=== PATIENT | male | born 1965 | race African-American/Black ===

== ENCOUNTER 2018-04-05 09:15 | Inpatient (IN) | payer OTHER ==
[2018-04-05 10:09] VITALS: BMI 33.1
--- NOTE | 2018-04-05 10:31 | HP ---
COWS - Scale Resting Pulse: 0= [place] 80 or Below Sweatin= Chills/Flushing Restless Observation: 3= Extraneous Movement Pupil Size: 1= Pupils >than Normal Bone or Joint Aches: 2= Severe Diffuse Aches Runny Nose/ Eye Tearin= Runny Nose/Eyes GI Upset > 30mins: 2= Nausea/Diarrhea Tremor Observation: 2= Slight Tremor Visible Yawning Observation: 2= >3x During Session Anxiety or Irritability: 2=Irritable/Anxious Goose Flesh Skin: 0=Smooth Skin COWS Score: 17 CIWA Score - CIWA Score Nausea/Vomitin Muscle Tremors: 2 Anxiety: 2 Agitation: 2 Paroxysmal Sweats: 1-Minimal Palms Moist Orientation: 0-Oriented Tacttile Disturbances: 1-Very Mild Itch/Numbness Auditory Disturbances: 1-Very Mild Visual Disturbances: 1-Very Mild Sensitivity Headache: 2-Mild CIWA-Ar Total Score: 14 Admission ROS BHS - HPI Chief Complaint: i need help to stop using heroin,alcohol,also on probation Allergies/Adverse Reactions: Allergies Allergy/AdvReac Type Severity Reaction Status Date / Time No Known Allergies Allergy Verified 04/05/18 10:13 History of Present Illness: this 52 years old male with heroin,alcohol dependence,xanax dependence seeking detox,withdrawal symptom,on probation last detox 2014 [facility] hypertension,hypercholesterolemia,hepatitis c,type 2 dm nicotine dependence anxiety,depression longest period of sobriety 2 and half year Exam Limitations: No Limitations - Ebola screening Have you traveled outside of the country in the last 21 days: No Have you had contact with anyone from an Ebola affected area: No Have you been sick,other than usual withdrawal symptoms: No Do you have a fever: No - Review of Systems Constitutional: Chills, Loss of Appetite, Malaise, Night Sweats, Changes in sleep, Weakness EENT: reports: Tearing, Nose Congestion Respiratory: reports: No Symptoms reported Cardiac: reports: No Symptoms Reported GI: reports: Constipated, Nausea, Abdominal cramping : reports: No Symptoms Reported Musculoskeletal: reports: Back Pain, Joint Pain, Muscle Pain, Joint Stiffness Integumentary: reports: Dryness Neuro: reports: Headache, Tremors Endocrine: reports: No Symptoms Reported Hematology: reports: No Symptoms Reported Psychiatric: reports: No Sypmtoms Reported, Judgement Intact, Mood/Affect Appropiate, Anxious, Depressed Patient History - Patient Medical History Hx Anemia: No Hx Asthma: No Hx Chronic Obstructive Pulmonary Disease (COPD): No Hx Cancer: No Hx Cardiac Disorders: No Hx Congestive Heart Failure: No Hx Hypertension: Yes (non complicance,on med) Hx Hypercholesterolemia: Yes (on med) Hx Pacemaker: No HX Cerebrovascular Accident: No Hx Seizures: No Hx Dementia: No Hx Diabetes: No Hx Gastrointestinal Disorders: No Hx Liver Disease: No Hx Genitourinary Disorders: No Hx Sexually Transmitted Disorders: No Hx Renal Disease (ESRD): No Hx Thyroid Disease: No Hx Human Immunodeficiency Virus (HIV): No Hx Hepatitis C: Yes (no treatment follow up by [facility]) Hx Depression: No Hx Suicide Attempt: No Hx Bipolar Disorder: No Hx Schizophrenia: No Other Medical History: anxiety,depression - Patient Surgical History Past Surgical History: No - PPD History Previous Implant?: Yes Documented Results: Negative w/o proof Implanted On Prior [facility] Admission?: Yes Date: 05/02/15 PPD to be Administered?: Yes - Smoking Cessation Smoking history: Current every day smoker Have you smoked in the past 12 months: Yes Aproximately how many cigarettes per day: 10 Hx Chewing Tobacco Use: No Initiated information on smoking cessation: Yes 'Breaking Loose' booklet given: 04/05/18 - Substance & Tx. History Hx Alcohol Use: Yes Hx Substance Use: Yes Substance Use Type: Alcohol, Heroin Hx Substance Use Treatment: Yes (2014 [facility]) - Substances Abused Heroin Route: Inhalation Frequency: Daily Amount used: 7-8 bags Age of first use: 17 Date of Last Use: 04/04/18 Alcohol-vodka Route: Oral Frequency: Daily Amount used: 3 pts. Age of first use: 13 Date of Last Use: 04/04/18 Family Disease History - Family Disease History Family Disease History: CA: Father ( ,cancer of lung), Other: Father Admission Physical Exam BHS - Vital Signs Vital Signs: Vital Signs - 24 hr 04/05/18 09:59 Temperature 97.8 F Pulse Rate 79 Respiratory 18 Rate Blood Pressure 117/68 - Physical General Appearance: Yes: Moderate Distress, Tremorous, Irritable, Sweating, Anxious HEENTM: Yes: Normal ENT Inspection, DUSTY, Pharynx Normal Respiratory: Yes: Lungs Clear, Normal Breath Sounds, No Respiratory Distress Breast: Yes: Within Normal Limits Cardiology: Yes: Within Normal Limits, Regular Rhythm, Regular Rate, S1, S2 Abdominal: Yes: Within Normal Limits, Normal Bowel Sounds, Non Tender, Soft Genitourinary: Yes: Within Normal Limits Back: Yes: Muscle Spasm Musculoskeletal: Yes: Back pain, Joint Stiffness, Muscle Pain Extremities: Yes: Within Normal Limits, Normal Range of Motion, Tremors Neurological: Yes: retail office associate II-XII NML intact, Fully Oriented, Alert, Motor Strength 5/5 Integumentary: Yes: Dry Lymphatic: Yes: Within Normal Limits - Diagnostic (1) Opioid dependence with withdrawal Current Visit: No Status: Chronic (2) Alcohol dependence with uncomplicated withdrawal Current Visit: No Status: Chronic (3) Benzodiazepine dependence Current Visit: No Status: Chronic (4) Nicotine dependence Current Visit: No Status: Chronic (5) Essential hypertension Current Visit: Yes Status: Acute (6) T2DM (type 2 diabetes mellitus) Current Visit: Yes Status: Acute (7) Hypercholesterolemia Current Visit: Yes Status: Acute (8) Anxiety with depression Current Visit: Yes Status: Acute Cleared for Admission [facility] - Detox or Rehab [facility] Level of Care: Medically Managed Detox Regimen/Protocol: Methadone/Librium [facility] Breath Alcohol Content Breath Alcohol Content: 0 Urine Drug Screen - Results Drug Screen Negative: No Urine Drug Screen Results: OPI-Opiates, BZO-Benzodiazepines, FEN-Fentanyl
[2018-04-05] MEDS ORDERED: hydrOXYzine PAMOATE 25 MG CAPSULE (FP) PO PRN (10:45)
[2018-04-05] MEDS ORDERED: chlordiazePOXIDE HCL 25 MG CAPSULE PO PRN (10:45)
[2018-04-05] MEDS ORDERED: LOPERAMIDE HCL 2 MG CAPSULE PO PRN (10:45)
[2018-04-05] MEDS ORDERED: guaiFENesin/D-METHORPHAN HB 10 ML UNIT-DOSE CUPS PO PRN (10:45)
[2018-04-05] MEDS ORDERED: IBUPROFEN 400 MG TABLET (FP) PO PRN (10:45)
[2018-04-05] MEDS ORDERED: MENTHOL/PHENOL 1 EACH UD MM PRN (10:45)
[2018-04-05] MEDS ORDERED: ACETAMINOPHEN 325 MG TABLET (FP) PO PRN (10:45)
[2018-04-05] MEDS ORDERED: MAGNESIUM HYDROX 2400MG/30ML ORAL SUSPENSION 30 ML CUP PO PRN (10:45)
[2018-04-05] MEDS ORDERED: MAGNESIUM CITRATE 300 ML BOTTLE PO PRN (10:45)
[2018-04-05] MEDS ORDERED: P-EPHED 60MG/TRIPROLIDI 2.5MG TABLET PO PRN (10:45)
[2018-04-05] MEDS ORDERED: MAG HYDROX/AL HYDROX/SIMETH 30 ML UNIT-DOSE CUP PO PRN (10:45)
[2018-04-05] MEDS ORDERED: METHADONE HCL 10 MG TABLET (FOR DETOX USE ONLY) PO ONE ×2 (11:05→23:00)
[2018-04-05] MEDS: chlordiazePOXIDE HCL 25 MG CAPSULE PO SCH ×2 (17:20→22:50)
[2018-04-05 18:11] LABS: URINE APPEARANCE CLEAR; URINE BILIRUBIN NEGATIVE (<2.0 mg/dL); URINE COLOR YELLOW; URINE GLUCOSE (UA) NEGATIVE (NEGATIVE); URINE KETONE NEGATIVE (NEGATIVE); URINE LEUK ESTERASE NEGATIVE (NEGATIVE); URINE NITRITE NEGATIVE (NEGATIVE); URINE PROTEIN NEGATIVE (NEGATIVE); URINE UROBILINOGEN NEGATIVE mg/dL (0.2-1.0)
[2018-04-05 18:28] LABS: EPI CELLS RARE /HPF (FEW); URINE HYALINE CAST 7 /lpf; URINE MUCUS MODERATE
[2018-04-05] MEDS: THIAMINE HCL 100 MG TABLET (FP) PO SCH (22:50)
[2018-04-05] MEDS: ATORVASTATIN CA 40 MG TABLET (FP) PO SCH (22:50)
[2018-04-06] MEDS: chlordiazePOXIDE HCL 25 MG CAPSULE PO SCH ×4 (05:33→22:40)
[2018-04-06] MEDS ORDERED: METHADONE HCL 10 MG TABLET (FOR DETOX USE ONLY) PO SCH (10:00)
--- NOTE | 2018-04-06 10:37 | EKG ---
Test Reason : Blood Pressure : / mmHG Vent. Rate : 070 BPM Atrial Rate : 070 BPM P-R Int : 168 ms QRS Dur : 108 ms QT Int : 422 ms P-R-T Axes : 074 071 057 degrees QTc Int : 455 ms NORMAL SINUS RHYTHM NORMAL ECG NO PREVIOUS ECGS AVAILABLE Confirmed by MICHELLE WALLIS MD ([id number]) on 04/06/2018 10:37:01 AM Referred By: Confirmed By:MICHELLE WALLIS MD
[2018-04-06] MEDS: PRENATAL VITAMINS W/ FOLIC ACID TABLET (FP) PO SCH (10:43)
[2018-04-06] MEDS: ASPIRIN COATED 81 MG TABLET.EC PO SCH (10:43)
[2018-04-06 11:13] LABS: HEMATOCRIT 38.3 % (35.4-49); HEMOGLOBIN 12.2 GM/dL (11.7-16.9); MCH 26.8 pg (25.7-33.7); MCHC 31.8 g/dl (32.0-35.9); MEAN CELL VOLUME 84.5 fl (80-96); MEAN PLT VOLUME 12.5 fl (7.5-11.1); PLATELET COUNT 179 K/MM3 (134-434); RBC 4.53 M/mm3 (4.00-5.60); RDW 17.2 % (11.9-15.9); WHITE BLOOD COUNT 7.2 K/mm3 (4.0-10.0)
[2018-04-06 11:26] LABS: ALBUMIN 3.6 g/dl (3.4-5.0); ALK PHOS 118 U/L (45-117); ANION GAP 8 MMOL/L (8-16); BILIRUBIN,TOTAL 1.1 mg/dL (0.2-1); BLOOD UREA NITROGEN 17 mg/dL (7-18); CALCIUM 9.2 mg/dL (8.5-10.1); CHLORIDE 103 mmol/L (98-107); CO2 28 mmol/L (21-32); CREATININE 1.4 mg/dL (0.55-1.3); GLUCOSE,RANDOM 70 mg/dL (74-106); POTASSIUM 3.7 mmol/L (3.5-5.1); SGOT/AST 34 U/L (15-37); SGPT/ALT 31 U/L (13-61); SODIUM 139 mmol/L (136-145); TOT PROT 8.1 g/dl (6.4-8.2)
--- NOTE | 2018-04-06 14:36 | PN ---
S CIWA - CIWA Score Nausea/Vomitin Muscle Tremors: 2 Anxiety: 2 Agitation: 2 Paroxysmal Sweats: 1-Minimal Palms Moist Orientation: 0-Oriented Tacttile Disturbances: 1-Very Mild Itch/Numbness Auditory Disturbances: 1-Very Mild Visual Disturbances: 1-Very Mild Sensitivity Headache: 2-Mild CIWA-Ar Total Score: 14 BHS COWS - Scale Resting Pulse: 0= [place] 80 or Below Sweatin= Chills/Flushing Restless Observation: 3= Extraneous Movement Pupil Size: 1= Pupils >than Normal Bone or Joint Aches: 2= Severe Diffuse Aches Runny Nose/ Eye Tearin= Runny Nose/Eyes GI Upset > 30mins: 2= Nausea/Diarrhea Tremor Observation of Outstretched Hands: 2= Slight Tremor Visible Yawning Observation: 1= 1-2x During Session Anxiety or Irritability: 2=Irritable/Anxious Goose Flesh Skin: 0=Smooth Skin COWS Score: 16 S Progress Note (SOAP) Subjective: alert,irritable,anxious,pain in the body,back,tremor Objective: 04/06/18 14:33 Vital Signs Temperature 98.6 F 04/06/18 11:09 Pulse Rate 61 04/06/18 11:09 Respiratory Rate 18 04/06/18 11:09 Blood Pressure 147/72 04/06/18 11:09 O2 Sat by Pulse Oximetry (%) ekg nsr qt/qtc 422/455 Laboratory Last Values WBC 7.2 K/mm3 (4.0-10.0) 04/06/18 06:00 RBC 4.53 M/mm3 (4.00-5.60) 04/06/18 06:00 Hgb 12.2 GM/dL (11.7-16.9) 04/06/18 06:00 Hct 38.3 % (35.4-49) 04/06/18 06:00 MCV 84.5 fl (80-96) 04/06/18 06:00 MCH 26.8 pg (25.7-33.7) 04/06/18 06:00 MCHC 31.8 g/dl (32.0-35.9) L 04/06/18 06:00 RDW 17.2 % (11.9-15.9) H 04/06/18 06:00 Plt Count 179 K/MM3 (134-434) 04/06/18 06:00 MPV 12.5 fl (7.5-11.1) H D 04/06/18 06:00 Sodium 139 mmol/L (136-145) 04/06/18 06:00 Potassium 3.7 mmol/L (3.5-5.1) 04/06/18 06:00 Chloride 103 mmol/L (98-107) 04/06/18 06:00 Carbon Dioxide 28 mmol/L (21-32) 04/06/18 06:00 Anion Gap 8 MMOL/L (8-16) 04/06/18 06:00 BUN 17 mg/dL (7-18) 04/06/18 06:00 Creatinine 1.4 mg/dL (0.55-1.3) H 04/06/18 06:00 Creat Clearance w eGFR 52.81 (>60) 04/06/18 06:00 POC Glucometer 108 UNITS (80-120) 04/06/18 05:33 Random Glucose 70 mg/dL (74-106) L 04/06/18 06:00 Calcium 9.2 mg/dL (8.5-10.1) 04/06/18 06:00 Total Bilirubin 1.1 mg/dL (0.2-1) H 04/06/18 06:00 AST 34 U/L (15-37) 04/06/18 06:00 ALT 31 U/L (13-61) 04/06/18 06:00 Alkaline Phosphatase 118 U/L (45-117) H 04/06/18 06:00 Total Protein 8.1 g/dl (6.4-8.2) 04/06/18 06:00 Albumin 3.6 g/dl (3.4-5.0) 04/06/18 06:00 Urine Color Yellow 04/05/18 17:00 Urine Appearance Clear 04/05/18 17:00 Urine pH 5.0 (5.0-8.0) 04/05/18 17:00 Ur Specific [place] 1.026 (1.010-1.035) 04/05/18 17:00 Urine Protein Negative (NEGATIVE) 04/05/18 17:00 Urine Glucose (UA) Negative (NEGATIVE) 04/05/18 17:00 Urine Ketones Negative (NEGATIVE) 04/05/18 17:00 Urine Blood 2+ (NEGATIVE) H 04/05/18 17:00 Urine Nitrite Negative (NEGATIVE) 04/05/18 17:00 Urine Bilirubin Negative (<2.0 mg/dL) 04/05/18 17:00 Urine Urobilinogen Negative mg/dL (0.2-1.0) 04/05/18 17:00 Ur Leukocyte Esterase Negative (NEGATIVE) 04/05/18 17:00 Urine WBC (Auto) None /hpf (3-5) 04/05/18 17:00 Urine RBC (Auto) 112 /hpf (0-3) 04/05/18 17:00 Ur Epithelial Cells Rare /HPF (FEW) 04/05/18 17:00 Hyaline Casts 7 /lpf 04/05/18 17:00 Urine Mucus Moderate 04/05/18 17:00 RPR Titer Nonreactive (NONREACTIVE) 04/06/18 06:00 Assessment: 04/06/18 14:35 withdrawal symptom Plan: continue detox,encourage oral fluid,repeat cmp in am,repeat ua for microscopic hematuria
--- NOTE | 2018-04-06 16:16 | CONSULT ---
[facility] Psychiatric Consult - Data Date of interview: 04/06/18 Admission source: [facility] Identifying data: Patient is approached for the psychiatric interview.Mr Pena DECLINES. " I don't need psychiatrists." Nursing staff is informed.
[2018-04-06] MEDS: THIAMINE HCL 100 MG TABLET (FP) PO SCH (22:39)
[2018-04-06] MEDS: MELATONIN 5 MG TABLETS PO PRN (22:40)
[2018-04-06] MEDS: ATORVASTATIN CA 40 MG TABLET (FP) PO SCH (22:40)
[2018-04-07] MEDS: chlordiazePOXIDE HCL 25 MG CAPSULE PO SCH ×2 (05:38→10:03)
[2018-04-07] MEDS: METHADONE HCL 5 MG TABLET (FOR DETOX USE ONLY) PO SCH (10:03)
[2018-04-07] MEDS: PRENATAL VITAMINS W/ FOLIC ACID TABLET (FP) PO SCH (10:03)
[2018-04-07] MEDS: ASPIRIN COATED 81 MG TABLET.EC PO SCH (10:03)
[2018-04-07 11:56] LABS: ALK PHOS 104 U/L (45-117); ANION GAP 9 MMOL/L (8-16); BILIRUBIN,TOTAL 0.4 mg/dL (0.2-1); BLOOD UREA NITROGEN 11 mg/dL (7-18); CALCIUM 8.9 mg/dL (8.5-10.1); CHLORIDE 107 mmol/L (98-107); CO2 27 mmol/L (21-32); GLUCOSE,RANDOM 95 mg/dL (74-106); POTASSIUM 3.9 mmol/L (3.5-5.1); SGOT/AST 22 U/L (15-37); SGPT/ALT 28 U/L (13-61); SODIUM 143 mmol/L (136-145); TOT PROT 7.1 g/dl (6.4-8.2)
[2018-04-07 11:58] LABS: URINE APPEARANCE SLCLOUDY; URINE BILIRUBIN NEGATIVE (<2.0 mg/dL); URINE COLOR YELLOW; URINE GLUCOSE (UA) NEGATIVE (NEGATIVE); URINE KETONE NEGATIVE (NEGATIVE); URINE LEUK ESTERASE NEGATIVE (NEGATIVE); URINE NITRITE NEGATIVE (NEGATIVE); URINE PROTEIN NEGATIVE (NEGATIVE); URINE UROBILINOGEN NEGATIVE mg/dL (0.2-1.0)
[2018-04-07 12:05] LABS: CALCIUM OXALATE CRYSTALS RARE /hpf (NONE SEEN); EPI CELLS RARE /HPF (FEW); URINE MUCUS FEW
--- NOTE | 2018-04-07 14:48 | PN ---
[facility] CIWA - CIWA Score Nausea/Vomitin Muscle Tremors: 3 Anxiety: 3 Agitation: 3 Paroxysmal Sweats: 3 Orientation: 0-Oriented Tacttile Disturbances: 0-None Auditory Disturbances: 0-None Visual Disturbances: 0-None Headache: 1-Very Mild CIWA-Ar Total Score: 15 BHS COWS - Scale Resting Pulse: 0= [place] 80 or Below Sweatin= Chills/Flushing Restless Observation: 3= Extraneous Movement Pupil Size: 1= Pupils >than Normal Bone or Joint Aches: 2= Severe Diffuse Aches Runny Nose/ Eye Tearin= Runny Nose/Eyes GI Upset > 30mins: 2= Nausea/Diarrhea Tremor Observation of Outstretched Hands: 2= Slight Tremor Visible Yawning Observation: 1= 1-2x During Session Anxiety or Irritability: 2=Irritable/Anxious Goose Flesh Skin: 0=Smooth Skin COWS Score: 16 S Progress Note (SOAP) Subjective: Interrupted sleep, anxious Objective: 04/07/18 14:44 Last Vital Signs Temp Pulse Resp BP Pulse Ox 97.8 F 57 L 18 117/74 04/07/18 14:06 04/07/18 14:06 04/07/18 14:06 04/07/18 14:06 Laboratory Tests 04/05/18 04/05/18 04/05/18 10:36 16:27 17:00 WBC RBC Hgb Hct MCV MCH MCHC RDW Plt Count MPV Sodium Potassium Chloride Carbon Dioxide Anion Gap BUN Creatinine Creat Clearance w eGFR POC Glucometer 124 117 Random Glucose Calcium Total Bilirubin AST ALT Alkaline Phosphatase Total Protein Albumin Urine Color Yellow Urine Appearance Clear Urine pH 5.0 Ur Specific [place] 1.026 Urine Protein Negative Urine Glucose (UA) Negative Urine Ketones Negative Urine Blood 2+ H Urine Nitrite Negative Urine Bilirubin Negative Urine Urobilinogen Negative Ur Leukocyte Esterase Negative Urine WBC (Auto) None Urine RBC (Auto) 112 Ur Epithelial Cells Rare Calcium Oxalate Crystal Hyaline Casts 7 Urine Mucus Moderate RPR Titer 04/06/18 04/06/18 04/06/18 05:33 06:00 06:00 WBC 7.2 RBC 4.53 Hgb 12.2 Hct 38.3 MCV 84.5 MCH 26.8 MCHC 31.8 L RDW 17.2 H Plt Count 179 MPV 12.5 H D Sodium 139 Potassium 3.7 Chloride 103 Carbon Dioxide 28 Anion Gap 8 BUN 17 Creatinine 1.4 H Creat Clearance w eGFR 52.81 POC Glucometer 108 Random Glucose 70 L Calcium 9.2 Total Bilirubin 1.1 H AST 34 ALT 31 Alkaline Phosphatase 118 H Total Protein 8.1 Albumin 3.6 Urine Color Urine Appearance Urine pH Ur Specific [place] Urine Protein Urine Glucose (UA) Urine Ketones Urine Blood Urine Nitrite Urine Bilirubin Urine Urobilinogen Ur Leukocyte Esterase Urine WBC (Auto) Urine RBC (Auto) Ur Epithelial Cells Calcium Oxalate Crystal Hyaline Casts Urine Mucus RPR Titer 04/06/18 04/06/18 04/07/18 06:00 16:26 05:40 WBC RBC Hgb Hct MCV MCH MCHC RDW Plt Count MPV Sodium Potassium Chloride Carbon Dioxide Anion Gap BUN Creatinine Creat Clearance w eGFR POC Glucometer 105 117 Random Glucose Calcium Total Bilirubin AST ALT Alkaline Phosphatase Total Protein Albumin Urine Color Urine Appearance Urine pH Ur Specific [place] Urine Protein Urine Glucose (UA) Urine Ketones Urine Blood Urine Nitrite Urine Bilirubin Urine Urobilinogen Ur Leukocyte Esterase Urine WBC (Auto) Urine RBC (Auto) Ur Epithelial Cells Calcium Oxalate Crystal Hyaline Casts Urine Mucus RPR Titer Nonreactive 04/07/18 04/07/18 07:30 07:30 WBC RBC Hgb Hct MCV MCH MCHC RDW Plt Count MPV Sodium 143 Potassium 3.9 Chloride 107 Carbon Dioxide 27 Anion Gap 9 BUN 11 Creatinine 1.0 Creat Clearance w eGFR > 60 POC Glucometer Random Glucose 95 Calcium 8.9 Total Bilirubin 0.4 AST 22 ALT 28 Alkaline Phosphatase 104 Total Protein 7.1 Albumin 3.0 L Urine Color Yellow Urine Appearance Slcloudy Urine pH 5.0 Ur Specific [place] 1.027 Urine Protein Negative Urine Glucose (UA) Negative Urine Ketones Negative Urine Blood 1+ H Urine Nitrite Negative Urine Bilirubin Negative Urine Urobilinogen Negative Ur Leukocyte Esterase Negative Urine WBC (Auto) 1 Urine RBC (Auto) 17 Ur Epithelial Cells Rare Calcium Oxalate Crystal Rare Hyaline Casts Urine Mucus Few RPR Titer Labs reviewed: creatinine 1.4, UA shows 1+ blood (was 2+ blood) Assessment: 04/07/18 14:45 Withdrawal sxs Noted with prerenal azotemia and microscopic hematuria Plan: Continue detox Prerenal azotemia: encouraged PO water intake, repeat BMP Microscopic hematuria: improved, encouraged PO water intake, follow up with PCP post discharge for further workup
[2018-04-07] MEDS: chlordiazePOXIDE 5 MG CAPSULE PO SCH ×2 (17:51→23:01)
[2018-04-07] MEDS: ATORVASTATIN CA 40 MG TABLET (FP) PO SCH (23:00)
[2018-04-07] MEDS: THIAMINE HCL 100 MG TABLET (FP) PO SCH (23:00)
[2018-04-08] MEDS: chlordiazePOXIDE 5 MG CAPSULE PO SCH ×2 (05:25→10:12)
[2018-04-08] MEDS: ASPIRIN COATED 81 MG TABLET.EC PO SCH (10:12)
[2018-04-08] MEDS: METHADONE HCL 5 MG TABLET (FOR DETOX USE ONLY) PO SCH (10:12)
[2018-04-08] MEDS: PRENATAL VITAMINS W/ FOLIC ACID TABLET (FP) PO SCH (10:12)
[2018-04-08 10:41] LABS: ANION GAP 7 MMOL/L (8-16); BLOOD UREA NITROGEN 13 mg/dL (7-18); CALCIUM 9.1 mg/dL (8.5-10.1); CHLORIDE 108 mmol/L (98-107); CO2 26 mmol/L (21-32); CREATININE 1.1 mg/dL (0.55-1.3); GLUCOSE,RANDOM 84 mg/dL (74-106); POTASSIUM 3.7 mmol/L (3.5-5.1); SODIUM 140 mmol/L (136-145)
--- NOTE | 2018-04-08 11:47 | PN ---
[facility] Progress Note Note: Vital Signs Temperature 99.1 F 04/08/18 09:37 Pulse Rate 60 04/08/18 09:37 Respiratory Rate 20 04/08/18 09:37 Blood Pressure 145/78 04/08/18 09:37 O2 Sat by Pulse Oximetry (%) Laboratory Last Values WBC 7.2 K/mm3 (4.0-10.0) 04/06/18 06:00 RBC 4.53 M/mm3 (4.00-5.60) 04/06/18 06:00 Hgb 12.2 GM/dL (11.7-16.9) 04/06/18 06:00 Hct 38.3 % (35.4-49) 04/06/18 06:00 MCV 84.5 fl (80-96) 04/06/18 06:00 MCH 26.8 pg (25.7-33.7) 04/06/18 06:00 MCHC 31.8 g/dl (32.0-35.9) L 04/06/18 06:00 RDW 17.2 % (11.9-15.9) H 04/06/18 06:00 Plt Count 179 K/MM3 (134-434) 04/06/18 06:00 MPV 12.5 fl (7.5-11.1) H D 04/06/18 06:00 Sodium 140 mmol/L (136-145) 04/08/18 07:00 Potassium 3.7 mmol/L (3.5-5.1) 04/08/18 07:00 Chloride 108 mmol/L (98-107) H 04/08/18 07:00 Carbon Dioxide 26 mmol/L (21-32) 04/08/18 07:00 Anion Gap 7 MMOL/L (8-16) L 04/08/18 07:00 BUN 13 mg/dL (7-18) 04/08/18 07:00 Creatinine 1.1 mg/dL (0.55-1.3) 04/08/18 07:00 Creat Clearance w eGFR > 60 (>60) 04/08/18 07:00 POC Glucometer 105 UNITS (80-120) 04/08/18 05:24 Random Glucose 84 mg/dL (74-106) 04/08/18 07:00 Calcium 9.1 mg/dL (8.5-10.1) 04/08/18 07:00 Total Bilirubin 0.4 mg/dL (0.2-1) 04/07/18 07:30 AST 22 U/L (15-37) 04/07/18 07:30 ALT 28 U/L (13-61) 04/07/18 07:30 Alkaline Phosphatase 104 U/L (45-117) 04/07/18 07:30 Total Protein 7.1 g/dl (6.4-8.2) 04/07/18 07:30 Albumin 3.0 g/dl (3.4-5.0) L 04/07/18 07:30 Urine Color Yellow 04/07/18 07:30 Urine Appearance Slcloudy 04/07/18 07:30 Urine pH 5.0 (5.0-8.0) 04/07/18 07:30 Ur Specific [place] 1.027 (1.010-1.035) 04/07/18 07:30 Urine Protein Negative (NEGATIVE) 04/07/18 07:30 Urine Glucose (UA) Negative (NEGATIVE) 04/07/18 07:30 Urine Ketones Negative (NEGATIVE) 04/07/18 07:30 Urine Blood 1+ (NEGATIVE) H 04/07/18 07:30 Urine Nitrite Negative (NEGATIVE) 04/07/18 07:30 Urine Bilirubin Negative (<2.0 mg/dL) 04/07/18 07:30 Urine Urobilinogen Negative mg/dL (0.2-1.0) 04/07/18 07:30 Ur Leukocyte Esterase Negative (NEGATIVE) 04/07/18 07:30 Urine WBC (Auto) 1 /hpf (3-5) 04/07/18 07:30 Urine RBC (Auto) 17 /hpf (0-3) 04/07/18 07:30 Ur Epithelial Cells Rare /HPF (FEW) 04/07/18 07:30 Calcium Oxalate Crystal Rare /hpf (NONE SEEN) 04/07/18 07:30 Hyaline Casts 7 /lpf 04/05/18 17:00 Urine Mucus Few 04/07/18 07:30 RPR Titer Nonreactive (NONREACTIVE) 04/06/18 06:00 c/o interrupted sleep and body aches AOx3 no distress no adventitious breath sounds full ROM ambulating in the unit withdrawal sx Continue detox Patient medically stable d/c in AM . patient reports has to attend housing appt at [facility] if not will be homeless. Patient educated to follow up with primary care provider in a week after discharge. continue to monitor
--- NOTE | 2018-04-08 17:55 | PN ---
[facility] Progress Note Note: Psychiatry Attending's follow up note : Fry Cook approached the patient for the requested re-evaluation. Mr Pena is found in the Dayroom socializing with peers. " I am fine. Doing well. I don't need to see you, psychiatrist." Pleasant, jovial, well groomed, conversant, friendly with staff. Visibly enjoying himself in ongoing recreational therapy session. NO issues to address.No indication for psychiatric intervention. Unremarkable, baseline mental status.
[2018-04-08] MEDS: chlordiazePOXIDE HCL 10 MG CAPSULE PO SCH (19:28)
[2018-04-08] MEDS: ATORVASTATIN CA 40 MG TABLET (FP) PO SCH (23:22)
[2018-04-08] MEDS: MELATONIN 5 MG TABLETS PO PRN (23:23)
[2018-04-08] MEDS: THIAMINE HCL 100 MG TABLET (FP) PO SCH (23:23)
[2018-04-09] MEDS: chlordiazePOXIDE HCL 10 MG CAPSULE PO SCH ×2 (00:16→05:49)
[2018-04-09] MEDS ORDERED: METHADONE HCL 5 MG TABLET (FOR DETOX USE ONLY) PO SCH (06:00)
[2018-04-09 06:28] VITALS: BP 109/61; PULSE 67; TEMP 97.9
[2018-04-09] MEDS ORDERED: METHADONE HCL 10 MG TABLET (FOR DETOX USE ONLY) PO SCH (10:00)
--- NOTE | 2018-04-09 11:21 | DS ---
[facility] Detox Discharge Summary Admission Date: 04/05/18 Discharge Date: 04/09/18 - History Present History: Alcohol Dependence, Opioid Dependence - Physical Exam Results Vital Signs: Vital Signs Temperature 97.9 F 04/09/18 06:27 Pulse Rate 67 04/09/18 06:27 Respiratory Rate 18 04/09/18 06:27 Blood Pressure 109/61 04/09/18 06:27 O2 Sat by Pulse Oximetry (%) Pertinent Admission Physical Exam Findings: PATIENT TOLERATED DETOX WITHOUT ADVERSE EVENT. ALERT AND ORIENTED X 3, SKIN WARM AND DRY, EXT FULL ROM, AMB AD GIORGIO. DENIES SI/HI. MEDICALLY STABLE. PATIENT CURRENTLY ON PROBATION AT TO FOLLOW UP WITH FISH FARMER UPON D/C. PATIENT ENCOURAGED TO ATTEND GROUP MEETINGS TO PREVENT RELAPSE AND TO SEEK MEDICAL ATTENTION IF WITHDRAWAL SYMPTOMS OCCUR. D/C INSTRUCTIONS GIVEN TO PATIENT BY STAFF. - Treatment Hospital Course: Detox Protocol Followed, Detoxed Safely, Responded well, Discharged Condition Good Patient has Accepted a Rehab Referral to: PATIENT TO FOLLOW UP WITH PROBATION - Medication Discharge Medications: Ambulatory Orders Aspirin [Aspirin EC] 81 mg PO DAILY 04/05/18 Atorvastatin Ca [Lipitor] 40 mg PO HS 04/05/18 Sertraline HCl [Zoloft] 100 mg PO DAILY 04/05/18 Aspirin Coated [Ecotrin -] 81 mg PO DAILY #30 tablet.ec 04/08/18 Atorvastatin Ca [Lipitor] 40 mg PO HS #30 tablet 04/08/18 - AMA Did Patient Leave Against Medical Advice: No
[2018-04-10] MEDS ORDERED: METHADONE HCL 5 MG TABLET (FOR DETOX USE ONLY) PO SCH (06:00)
== END 2018-04-09 06:54 | disposition home or self-care (01) | DRG 773 ==
LOC: YASAS 09:15 → Y3N 10:54
PROC: HZ2ZZZZ Detoxification Services for Substance Abuse Treatment (ICD-10-PCS; principal; 2018-04-05)
DX: F11.23 Opioid dependence with withdrawal (principal); F10.230 Alcohol dependence with withdrawal, uncomplicated; F13.20 Sedative, hypnotic or anxiolytic dependence, uncomplicated; F17.210 Nicotine dependence, cigarettes, uncomplicated; F41.9 Anxiety disorder, unspecified; I10 Essential (primary) hypertension; E78.00 Pure hypercholesterolemia, unspecified; E11.9 Type 2 diabetes mellitus without complications; E86.0 Dehydration; D50.9 Iron deficiency anemia, unspecified; R79.89 Other specified abnormal findings of blood chemistry; B18.2 Chronic viral hepatitis C; Z91.14 Patient's other noncompliance with medication regimen
CPT/HCPCS: 36415; 80048; 80053; 81003; 81015; 82962; 85027; 86593; 93005; 93010